=== PATIENT | male | born 1990 | race Caucasian/White ===

== ENCOUNTER 2023-02-14 13:06 | Inpatient (IN) | payer MEDICAID ==
[~2023-02-14] VITALS: Ht 182.9 cm; Wt 89.7 kg
[2023-02-14] MEDS ORDERED: HALOPERIDOL 5 MG TABLET PO PRN (17:30)
[2023-02-14] MEDS ORDERED: ZOLPIDEM TARTRATE 10 MG TABLET PO PRN (17:30)
[2023-02-14] MEDS ORDERED: LORazepam 2 MG TABLET PO PRN (17:30)
[2023-02-14 19:07] VITALS: BP 121/76
[2023-02-14] MEDS ORDERED: ACETAMINOPHEN 325 MG TABLET PO PRN (19:45)
[2023-02-14] MEDS ORDERED: DOCUSATE SODIUM 100 MG CAPSULE PO PRN (19:45)
[2023-02-14] MEDS ORDERED: IBUPROFEN 600 MG TABLET PO PRN (19:45)
[2023-02-14] MEDS ORDERED: MAG HYDROX/AL HYDROX/SIMETH ES 30 ML SUSPENSION UDCUP PO PRN (19:45)
[2023-02-14] MEDS ORDERED: ONDANSETRON HCL 4 MG TABLET PO PRN (19:45)
[2023-02-14] MEDS ORDERED: CloNIDine HCL 0.1 MG TABLET PO PRN (19:45)
[2023-02-14] MEDS ORDERED: PETROLATUM,WHITE 28 GM JELLY TP PRN (19:45)
[2023-02-14] MEDS ORDERED: MAGNESIUM HYDROXIDE SUSPENSION 30 ML UDCUP PO PRN (19:45)
[2023-02-14] MEDS ORDERED: ALBUTEROL SULFATE HFA 90 MCG/PUFF 8 GM INHALER IH PRN (19:45)
[2023-02-14] MEDS ORDERED: NICOTINE 21 MG/24 HOUR PATCH TD PRN (19:45)
[2023-02-14] MEDS ORDERED: OMEPRAZOLE 20 MG CAPSULE PO PRN (19:45)
[2023-02-14] MEDS ORDERED: BACITRACIN 28 GM OINTMENT TP PRN (19:45)
[2023-02-14] MEDS ORDERED: LOPERAMIDE HCL 2 MG CAPSULE PO PRN (19:45)
[2023-02-15 08:04] VITALS: BP 126/78
[2023-02-15 20:34] VITALS: BP 121/81
[2023-02-15] MEDS ORDERED: OLANZapine 5 MG TABLET PO SCH (21:00)
[2023-02-16] MEDS: ESCITALOPRAM OXALATE 10 MG TABLET PO SCH ×2 (08:14→09:00)
== END 2023-02-16 18:45 | disposition home or self-care (01) | DRG 753 ==
LOC: B3A 17:41
PROVIDERS: ADMIT Psychiatry & Neurology Psychiatry; ATTEND Psychiatry & Neurology Psychiatry
DX: F31.9 Bipolar disorder, unspecified (principal); R45.851 Suicidal ideations; F29 Unspecified psychosis not due to a substance or known physiological condition; F15.10 Other stimulant abuse, uncomplicated; F10.90 Alcohol use, unspecified, uncomplicated; F41.9 Anxiety disorder, unspecified; G47.00 Insomnia, unspecified; K21.9 Gastro-esophageal reflux disease without esophagitis; K59.00 Constipation, unspecified; Z72.0 Tobacco use
CPT/HCPCS: 99285; Z7502; Z7610